=== PATIENT | female | born 1980 | race Caucasian/White ===

== ENCOUNTER 2020-07-21 07:32 | Day surgery (SDC) | payer OTHER ==
[~2020-07-21 07:32] MED LIST: CIPR500T3 PO; DOCU100C33 PO; IBUP-1222 PO; MESA1.2T PO; NORE0.3515 PO; OMEP20CA9 PO; ONDA4TAB10 PO; PANT40TA6 PO; PRED10TA PO; PRED20TA PO; PREN1TAB60 PO; birth control
[2020-07-21] MEDS ORDERED: SODIUM CHLORIDE 0.9% 1,000 ML IV SCH (08:00)
[2020-07-21] MEDS ORDERED: MIDAZOLAM 1 MG/ML, 5ML ONE ×2 (09:26)
[2020-07-21] MEDS ORDERED: FLUMAZENIL 0.1 MG/1 ML, 5ML ONE (09:26)
[2020-07-21] MEDS ORDERED: CEFAZOLIN PMX 1GM/50ML 50 ML ONE (09:26)
[2020-07-21] MEDS ORDERED: NALOXONE 1 MG/ML, 2ML ONE (09:26)
[2020-07-21] MEDS ORDERED: FENTANYL PF 100 MCG/2ML ONE (09:26)
[2020-07-21] MEDS ORDERED: LIDOCAINE 1%, 10ML ONE (09:32)
[2020-07-21] MEDS ORDERED: LIDOCAINE 1%, 20ML ONE (09:32)
== END 2020-07-21 12:10 | disposition home or self-care (01) ==
LOC: OUT 07:32
PROVIDERS: ATTEND Internal Medicine Hematology & Oncology
DX: Z45.2 Encounter for adjustment and management of vascular access device (principal); C18.2 Malignant neoplasm of ascending colon; F12.90 Cannabis use, unspecified, uncomplicated; Z88.8 Allergy status to other drugs, medicaments and biological substances; Z86.711 Personal history of pulmonary embolism; Z79.01 Long term (current) use of anticoagulants; Z90.49 Acquired absence of other specified parts of digestive tract; Z98.890 Other specified postprocedural states; Z79.899 Other long term (current) drug therapy; Z72.89 Other problems related to lifestyle
CPT/HCPCS: 36561; 76937; 77001; 99156; 99157; C1788; J0690; J1642; J2250; J3010; J7030; J2310

== ENCOUNTER → 2020-08-02 | Outpatient (CLI) | payer OTHER ==
[~2020-08-02] MED LIST changes: +GADOTERATE 7.5 MMOL/15 ML SYR ONE
== END | disposition home or self-care (01) ==
LOC: CFH 07:24
PROVIDERS: ATTEND Internal Medicine Hematology & Oncology
DX: C18.2 Malignant neoplasm of ascending colon (principal); M51.37 Other intervertebral disc degeneration, lumbosacral region; M48.07 Spinal stenosis, lumbosacral region; R59.0 Localized enlarged lymph nodes
CPT/HCPCS: 72158; A9575